=== PATIENT | female | born 1995 | race Caucasian/White ===

== ENCOUNTER → 2016-06-29 | Outpatient (CLI) | payer OTHER, BC | LOC: MW.CHFP 14:15 | PROVIDERS: ATTEND Physician Assistant | DX: J02.9 Acute pharyngitis, unspecified (principal) | CPT/HCPCS: 87081; 87880 ==

== ENCOUNTER 2017-03-15 17:48 | Emergency (ER) | payer BC, OTHER ==
--- NOTE | 2017-03-15 19:28 | EDM.PDOC ---
ED HPI GENERAL MEDICAL PROBLEM - General Chief Complaint: Abdominal Pain Stated Complaint: ABDOMINAL PAIN Time Seen by Provider: 03/15/17 19:22 - History of Present Illness INITIAL COMMENTS - FREE TEXT/NARRATIVE: HISTORY AND PHYSICAL: History of present illness: Patient 22-year-old female presents with a concern of vomiting and diarrhea right-sided abdominal pain since Wednesday has been no fever no chills she states her nausea vomiting and mostly with food she denies urinary symptoms vaginal discharge she has had a prior appendectomy. Review of systems: As per history of present illness and below otherwise all systems reviewed and negative. Past medical history: As per history of present illness and as reviewed below otherwise noncontributory. Surgical history: As per history of present illness and as reviewed below otherwise noncontributory. Social history: No reported history of drug or alcohol abuse. Family history: As per history of present illness and as reviewed below otherwise noncontributory. Physical exam: HEENT: Atraumatic, normocephalic, pupils reactive, negative for conjunctival pallor or scleral icterus, mucous membranes moist, throat clear, neck supple, nontender, trachea midline. Lungs: Clear to auscultation, breath sounds equal bilaterally, chest nontender. Heart: S1S2, regular, negative for clicks, rubs, or JVD. Abdomen: Soft, nondistended, nonlocalized right-sided tenderness no rebound no guarding. Negative for masses or hepatosplenomegaly. Negative for costovertebral tenderness. Pelvis: Stable nontender. Genitourinary: Deferred. Rectal: Deferred. Extremities: Atraumatic, negative for cords or calf pain. Neurovascular unremarkable. Neuro: Awake, alert, oriented. Cranial nerves II through XII unremarkable. Cerebellum unremarkable. Motor and sensory unremarkable throughout. Exam nonfocal. Diagnostics: EBC CMP UA hCG influenza screen Therapeutics: None Impression: #1 gastroenteritis Definitive disposition and diagnosis as appropriate pending reevaluation and review of above. right upper and lower quadrant abd Pain Score (Numeric/FACES): 8 - Related Data Allergies Allergy/AdvReac Type Severity Reaction Status Date / Time Penicillins Allergy Cannot Verified 03/15/17 18:24 Remember Home Meds: Home Meds Sertraline [Zoloft] 100 mg PO DAILY 03/28/15 [History] buPROPion [Wellbutrin SR] 150 mg PO ONETIME 10/23/15 [History] Past Medical History - Past Health History Medical/Surgical History: Denies Medical/Surgical History HEENT History: Reports: Other (See Below) Other HEENT History: wears glasses Cardiovascular History: Reports: Other (See Below) Other Cardiovascular History: states she has Mitral Valve prolapse, no murmur heard Respiratory History: Reports: None Gastrointestinal History: Reports: GERD Other Gastrointestinal History: rectal bleed Genitourinary History: Reports: None Other Genitourinary History: states frequent UTI's in last 2 years REHAB AID History: Reports: None Musculoskeletal History: Reports: None Neurological History: Reports: Migraines Other Neuro History: does not take any medications for migranes, "sleeps" to relieve pain Psychiatric History: Reports: Anxiety, Depression Endocrine/Metabolic History: Reports: None Hematologic History: Reports: None Immunologic History: Reports: None Oncologic (Cancer) History: Reports: None Dermatologic History: Reports: None - Infectious Disease History Infectious Disease History: Reports: Chicken Pox - Past Surgical History Head Surgeries/Procedures: Reports: None GI Surgical History: Reports: Appendectomy, Colonoscopy Female Surgical History: Reports: None Neurological Surgical History: Reports: None Musculoskeletal Surgical History: Reports: None Oncologic Surgical History: Reports: None Dermatological Surgical History: Reports: None Social & Family History - Family History Family Medical History: Noncontributory - Tobacco Use Smoking Status *Q: Current Every Day Smoker Years of Tobacco use: 5 Packs/Tins Daily: 0.5 Second Hand Smoke Exposure: Yes - Caffeine Use Caffeine Use: Reports: Soda - Alcohol Use Days Per Week of Alcohol Use: 2 Number of Drinks Per Day: 3 Total Drinks Per Week: 6 - Recreational Drug Use Recreational Drug Use: No Drug Use in Last 12 Months: No ED ROS GENERAL - Review of Systems Review Of Systems: ROS reveals no pertinent complaints other than HPI. ED EXAM, GENERAL - Physical Exam Exam: See Below (See dictation) Course - Vital Signs Last Recorded V/S: Last Vital Signs Temp 37.0 C 03/15/17 18:25 Pulse 93 03/15/17 18:25 Resp 18 03/15/17 18:25 BP 121/78 03/15/17 18:25 Pulse Ox 99 03/15/17 18:25 - Orders/Labs/Meds Orders: Active Orders 24 hr Category Date Time Status INFLUENZA A+B AG SCREEN [RM] Stat Lab 03/15/17 20:14 Received Labs: Laboratory Tests 03/15/17 03/15/17 03/15/17 Range/Units 19:35 19:35 19:35 WBC 8.46 (4.0-11.0) K/uL RBC 3.91 L (4.30-5.90) M/uL Hgb 13.1 (12.0-16.0) g/dL Hct 38.6 (36.0-46.0) % MCV 98.7 H (80.0-98.0) fL MCH 33.5 H (27.0-32.0) pg MCHC 33.9 (31.0-37.0) g/dL RDW Std Deviation 48.1 (28.0-62.0) fl RDW Coeff of Joan 14 (11.0-15.0) % Plt Count 264 (150-400) K/uL MPV 9.00 (7.40-12.00) fL Neut % (Auto) 63.7 (48.0-80.0) % Lymph % (Auto) 26.7 (16.0-40.0) % [place] % (Auto) 7.7 (0.0-15.0) % Eos % (Auto) 1.5 (0.0-7.0) % Baso % (Auto) 0.4 (0.0-1.5) % Neut # (Auto) 5.4 (1.4-5.7) K/uL Lymph # (Auto) 2.3 (0.6-2.4) K/uL [place] # (Auto) 0.7 (0.0-0.8) K/uL Eos # (Auto) 0.1 (0.0-0.7) K/uL Baso # (Auto) 0.0 (0.0-0.1) K/uL Nucleated RBC % 0.0 /100WBC Nucleated RBCs # 0 K/uL Sodium 141 (136-146) mmol/L Potassium 3.8 (3.5-5.1) mmol/L Chloride 107 (98-110) mmol/L Carbon Dioxide 23 (21-31) mmol/L BUN 7 (6.0-23.0) mg/dL Creatinine 0.8 (0.6-1.5) mg/dL Est Cr Clr Drug Dosing 87.62 mL/min Estimated GFR (MDRD) > 60.0 ml/min Glucose 88 (60-110) mg/dL Calcium 9.5 (8.8-10.8) mg/dL Total Bilirubin 0.4 (0.1-1.5) mg/dL AST 24 (5-40) IU/L ALT 16 (8-54) IU/L Alkaline Phosphatase 78 (40-150) Total Protein 8.1 H (6.0-8.0) g/dL Albumin 4.6 (3.5-5.0) g/dL Globulin 3.5 (2.0-3.5) g/dL Albumin/Globulin Ratio 1.3 (1.3-2.8) HCG, Qual NEGATIVE (NEG) Urine Color Urine Appearance Urine pH (5.0-8.0) Ur Specific [place] (1.001-1.035) Urine Protein (NEGATIVE) mg/dL Urine Glucose (UA) (NEGATIVE) mg/dL Urine Ketones (NEGATIVE) mg/dL Urine Occult Blood (NEGATIVE) Urine Nitrite (NEGATIVE) Urine Bilirubin (NEGATIVE) Urine Urobilinogen (<2.0) EU/dL Ur Leukocyte Esterase (NEGATIVE) Urine RBC (0-2/HPF) Urine WBC (0-5/HPF) Ur Epithelial Cells (NONE-FEW) Amorphous Sediment (NEGATIVE) Urine Bacteria (NEGATIVE) 03/15/17 Range/Units 20:00 WBC (4.0-11.0) K/uL RBC (4.30-5.90) M/uL Hgb (12.0-16.0) g/dL Hct (36.0-46.0) % MCV (80.0-98.0) fL MCH (27.0-32.0) pg MCHC (31.0-37.0) g/dL RDW Std Deviation (28.0-62.0) fl RDW Coeff of Joan (11.0-15.0) % Plt Count (150-400) K/uL MPV (7.40-12.00) fL Neut % (Auto) (48.0-80.0) % Lymph % (Auto) (16.0-40.0) % [place] % (Auto) (0.0-15.0) % Eos % (Auto) (0.0-7.0) % Baso % (Auto) (0.0-1.5) % Neut # (Auto) (1.4-5.7) K/uL Lymph # (Auto) (0.6-2.4) K/uL [place] # (Auto) (0.0-0.8) K/uL Eos # (Auto) (0.0-0.7) K/uL Baso # (Auto) (0.0-0.1) K/uL Nucleated RBC % /100WBC Nucleated RBCs # K/uL Sodium (136-146) mmol/L Potassium (3.5-5.1) mmol/L Chloride (98-110) mmol/L Carbon Dioxide (21-31) mmol/L BUN (6.0-23.0) mg/dL Creatinine (0.6-1.5) mg/dL Est Cr Clr Drug Dosing mL/min Estimated GFR (MDRD) ml/min Glucose (60-110) mg/dL Calcium (8.8-10.8) mg/dL Total Bilirubin (0.1-1.5) mg/dL AST (5-40) IU/L ALT (8-54) IU/L Alkaline Phosphatase (40-150) Total Protein (6.0-8.0) g/dL Albumin (3.5-5.0) g/dL Globulin (2.0-3.5) g/dL Albumin/Globulin Ratio (1.3-2.8) HCG, Qual (NEG) Urine Color YELLOW Urine Appearance CLEAR Urine pH 6.0 (5.0-8.0) Ur Specific [place] >= 1.030 (1.001-1.035) Urine Protein NEGATIVE (NEGATIVE) mg/dL Urine Glucose (UA) NEGATIVE (NEGATIVE) mg/dL Urine Ketones NEGATIVE (NEGATIVE) mg/dL Urine Occult Blood NEGATIVE (NEGATIVE) Urine Nitrite NEGATIVE (NEGATIVE) Urine Bilirubin NEGATIVE (NEGATIVE) Urine Urobilinogen 0.2 (<2.0) EU/dL Ur Leukocyte Esterase NEGATIVE (NEGATIVE) Urine RBC 0-1 (0-2/HPF) Urine WBC 1-2 (0-5/HPF) Ur Epithelial Cells MODERATE (NONE-FEW) Amorphous Sediment FEW (NEGATIVE) Urine Bacteria FEW (NEGATIVE) Departure - Departure Time of Disposition: 20:26 Disposition: Home, Self-Care 01 Condition: Good Clinical Impression: Gastroenteritis - Discharge Information Referrals: Mildred Thomas NP [Primary Care Provider] - Forms: ED Department Discharge Additional Instructions: The following information is given to patients seen in the emergency department who are being discharged to home. This information is to outline your options for follow-up care. We provide all patients seen in our emergency department with a follow-up referral. The need for follow-up, as well as the timing and circumstances, are variable depending upon the specifics of your emergency department visit. If you don't have a primary care physician on staff, we will provide you with a referral. We always advise you to contact your personal physician following an emergency department visit to inform them of the circumstance of the visit and for follow-up with them and/or the need for any referrals to a consulting specialist. The emergency department will also refer you to a specialist when appropriate. This referral assures that you have the opportunity for followup care with a specialist. All of these measure are taken in an effort to provide you with optimal care, which includes your followup. Under all circumstances we always encourage you to contact your private physician who remains a resource for coordinating your care. When calling for followup care, please make the office aware that this follow-up is from your recent emergency room visit. If for any reason you are refused follow-up, please contact the [facility] emergency department at and asked to speak to the emergency department charge nurse. Push fluids clear liquids 24 hours avoid dairy 72 hours follow-up private medical doctor 1-2 days return as needed as discussed - My Orders Last 24 Hours: My Active Orders 03/15/17 20:14 INFLUENZA A+B AG SCREEN [RM] Stat - Assessment/Plan Last 24 Hours: My Active Orders 03/15/17 20:14 INFLUENZA A+B AG SCREEN [RM] Stat
[2017-03-15 20:00] LABS: CHLORIDE,CL 107 mmol/L (98-110); SODIUM,NA 141 mmol/L (136-146)
[2017-03-15 20:50] VITALS: BP 115/69
== END 2017-03-15 20:45 | disposition home or self-care (01) ==
LOC: MW.ED 17:48
DX: K52.9 Noninfective gastroenteritis and colitis, unspecified (principal); F17.210 Nicotine dependence, cigarettes, uncomplicated; Z88.0 Allergy status to penicillin; Z79.899 Other long term (current) drug therapy
CPT/HCPCS: 80053; 81001; 84703; 85025; 87804; 99283; 99284

== ENCOUNTER 2017-03-20 21:03 | Emergency (ER) | payer OTHER ==
--- NOTE | 2017-03-20 21:21 | EDM.PDOC ---
ED HPI GENERAL MEDICAL PROBLEM - General Chief Complaint: Gastrointestinal Problem Stated Complaint: STOMACH PAIN Time Seen by Provider: 03/20/17 21:16 - History of Present Illness INITIAL COMMENTS - FREE TEXT/NARRATIVE: HISTORY AND PHYSICAL: History of present illness: Patient is a 22-year-old female presents to the ER for a second visit for abdominal pain she states there is been no fever chills urinary symptoms vaginal discharge or irregular bleeding Review of systems: As per history of present illness and below otherwise all systems reviewed and negative. Past medical history: As per history of present illness and as reviewed below otherwise noncontributory. Surgical history: As per history of present illness and as reviewed below otherwise noncontributory. Social history: No reported history of drug or alcohol abuse. Family history: As per history of present illness and as reviewed below otherwise noncontributory. Physical exam: HEENT: Atraumatic, normocephalic, pupils reactive, negative for conjunctival pallor or scleral icterus, mucous membranes moist, throat clear, neck supple, nontender, trachea midline. Lungs: Clear to auscultation, breath sounds equal bilaterally, chest nontender. Heart: S1S2, regular, negative for clicks, rubs, or JVD. Abdomen: Soft, nondistended, no localized tender. Negative for masses or hepatosplenomegaly. Negative for costovertebral tenderness. Pelvis: Stable nontender. Genitourinary: Deferred. Rectal: Deferred. Extremities: Atraumatic, negative for cords or calf pain. Neurovascular unremarkable. Neuro: Awake, alert, oriented. Cranial nerves II through XII unremarkable. Cerebellum unremarkable. Motor and sensory unremarkable throughout. Exam nonfocal. Diagnostics: CBC CMP UA lipase urine drug screen hCG Therapeutics: None Impression: #1 nonspecific abdominal pain Definitive disposition and diagnosis as appropriate pending reevaluation and review of above. Abdomen Pain Score (Numeric/FACES): 9 - Related Data Allergies Allergy/AdvReac Type Severity Reaction Status Date / Time Penicillins Allergy Cannot Verified 03/20/17 21:16 Remember Home Meds: Home Meds Sertraline [Zoloft] 100 mg PO DAILY 03/28/15 [History] buPROPion [Wellbutrin SR] 150 mg PO ONETIME 10/23/15 [History] Past Medical History - Past Health History Medical/Surgical History: Denies Medical/Surgical History HEENT History: Reports: Other (See Below) Other HEENT History: wears glasses Cardiovascular History: Reports: Other (See Below) Other Cardiovascular History: states she has Mitral Valve prolapse, no murmur heard Respiratory History: Reports: None Gastrointestinal History: Reports: GERD Other Gastrointestinal History: rectal bleed Genitourinary History: Reports: None Other Genitourinary History: states frequent UTI's in last 2 years 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: None Musculoskeletal History: Reports: None Neurological History: Reports: Migraines Other Neuro History: does not take any medications for migranes, "sleeps" to relieve pain Psychiatric History: Reports: Anxiety, Depression Endocrine/Metabolic History: Reports: None Hematologic History: Reports: None Immunologic History: Reports: None Oncologic (Cancer) History: Reports: None Dermatologic History: Reports: None - Infectious Disease History Infectious Disease History: Reports: Chicken Pox - Past Surgical History Head Surgeries/Procedures: Reports: None GI Surgical History: Reports: Appendectomy, Colonoscopy Female Surgical History: Reports: None Neurological Surgical History: Reports: None Musculoskeletal Surgical History: Reports: None Oncologic Surgical History: Reports: None Dermatological Surgical History: Reports: None Social & Family History - Family History Family Medical History: Noncontributory - Tobacco Use Smoking Status *Q: Current Every Day Smoker Years of Tobacco use: 5 Packs/Tins Daily: 0.5 Second Hand Smoke Exposure: Yes - Caffeine Use Caffeine Use: Reports: Soda - Alcohol Use Days Per Week of Alcohol Use: 2 Number of Drinks Per Day: 3 Total Drinks Per Week: 6 - Recreational Drug Use Recreational Drug Use: No Drug Use in Last 12 Months: No ED ROS GENERAL - Review of Systems Review Of Systems: ROS reveals no pertinent complaints other than HPI. ED EXAM, GENERAL - Physical Exam Exam: See Below (See dictation) Course - Vital Signs Last Recorded V/S: Last Vital Signs Temp 36.6 C 03/21/17 01:30 Pulse 68 03/21/17 01:30 Resp 18 03/21/17 01:30 BP 111/62 03/21/17 01:30 Pulse Ox 98 03/21/17 01:30 - Orders/Labs/Meds Orders: Active Orders 24 hr Category Date Time Status Abdomen Pelvis w Cont [CT] Stat Exams 03/20/17 21:22 Taken Pelvis Non OB Comp [US] Stat Exams 12/24/17 00:20 Taken Labs: Laboratory Tests 03/20/17 03/20/17 03/20/17 Range/Units 21:30 21:30 21:30 WBC 8.33 (4.0-11.0) K/uL RBC 4.22 L (4.30-5.90) M/uL Hgb 14.3 (12.0-16.0) g/dL Hct 41.4 (36.0-46.0) % MCV 98.1 H (80.0-98.0) fL MCH 33.9 H (27.0-32.0) pg MCHC 34.5 (31.0-37.0) g/dL RDW Std Deviation 47.5 (28.0-62.0) fl RDW Coeff of Joan 13 (11.0-15.0) % Plt Count 282 (150-400) K/uL MPV 9.00 (7.40-12.00) fL Neut % (Auto) 56.7 (48.0-80.0) % Lymph % (Auto) 31.1 (16.0-40.0) % [place] % (Auto) 10.1 (0.0-15.0) % Eos % (Auto) 1.6 (0.0-7.0) % Baso % (Auto) 0.5 (0.0-1.5) % Neut # (Auto) 4.7 (1.4-5.7) K/uL Lymph # (Auto) 2.6 H (0.6-2.4) K/uL [place] # (Auto) 0.8 (0.0-0.8) K/uL Eos # (Auto) 0.1 (0.0-0.7) K/uL Baso # (Auto) 0.0 (0.0-0.1) K/uL Nucleated RBC % 0.0 /100WBC Nucleated RBCs # 0 K/uL Sodium 139 (136-146) mmol/L Potassium 4.2 (3.5-5.1) mmol/L Chloride 107 (98-110) mmol/L Carbon Dioxide 20 L (21-31) mmol/L BUN 10 (6.0-23.0) mg/dL Creatinine 0.8 (0.6-1.5) mg/dL Est Cr Clr Drug Dosing TNP Estimated GFR (MDRD) > 60.0 ml/min Glucose 85 (60-110) mg/dL Calcium 10.0 (8.8-10.8) mg/dL Total Bilirubin 0.5 (0.1-1.5) mg/dL AST 26 (5-40) IU/L ALT 18 (8-54) IU/L Alkaline Phosphatase 73 (40-150) Total Protein 8.5 H (6.0-8.0) g/dL Albumin 4.8 (3.5-5.0) g/dL Globulin 3.7 H (2.0-3.5) g/dL Albumin/Globulin Ratio 1.3 (1.3-2.8) Lipase 18 (7-80) U/L HCG, Qual NEGATIVE (NEG) Urine Color Urine Appearance Urine pH (5.0-8.0) Ur Specific [place] (1.001-1.035) Urine Protein (NEGATIVE) mg/dL Urine Glucose (UA) (NEGATIVE) mg/dL Urine Ketones (NEGATIVE) mg/dL Urine Occult Blood (NEGATIVE) Urine Nitrite (NEGATIVE) Urine Bilirubin (NEGATIVE) Urine Urobilinogen (<2.0) EU/dL Ur Leukocyte Esterase (NEGATIVE) Urine RBC (0-2/HPF) Urine WBC (0-5/HPF) Ur Epithelial Cells (NONE-FEW) Amorphous Sediment (NEGATIVE) Urine Bacteria (NEGATIVE) Urine Mucus (NONE-MOD) Urine Opiates Screen (NEGATIVE) Ur Oxycodone Screen (NEGATIVE) Urine Methadone Screen (NEGATIVE) Ur Barbiturates Screen (NEGATIVE) Ur Phencyclidine Scrn (NEGATIVE) Ur Amphetamine Screen (NEGATIVE) U Methamphetamines Scrn (NEGATIVE) U Benzodiazepines Scrn (NEGATIVE) U Cocaine Metab Screen (NEGATIVE) U Marijuana (THC) Screen (NEGATIVE) 03/20/17 03/20/17 Range/Units 21:45 21:45 WBC (4.0-11.0) K/uL RBC (4.30-5.90) M/uL Hgb (12.0-16.0) g/dL Hct (36.0-46.0) % MCV (80.0-98.0) fL MCH (27.0-32.0) pg MCHC (31.0-37.0) g/dL RDW Std Deviation (28.0-62.0) fl RDW Coeff of Joan (11.0-15.0) % Plt Count (150-400) K/uL MPV (7.40-12.00) fL Neut % (Auto) (48.0-80.0) % Lymph % (Auto) (16.0-40.0) % [place] % (Auto) (0.0-15.0) % Eos % (Auto) (0.0-7.0) % Baso % (Auto) (0.0-1.5) % Neut # (Auto) (1.4-5.7) K/uL Lymph # (Auto) (0.6-2.4) K/uL [place] # (Auto) (0.0-0.8) K/uL Eos # (Auto) (0.0-0.7) K/uL Baso # (Auto) (0.0-0.1) K/uL Nucleated RBC % /100WBC Nucleated RBCs # K/uL Sodium (136-146) mmol/L Potassium (3.5-5.1) mmol/L Chloride (98-110) mmol/L Carbon Dioxide (21-31) mmol/L BUN (6.0-23.0) mg/dL Creatinine (0.6-1.5) mg/dL Est Cr Clr Drug Dosing Estimated GFR (MDRD) ml/min Glucose (60-110) mg/dL Calcium (8.8-10.8) mg/dL Total Bilirubin (0.1-1.5) mg/dL AST (5-40) IU/L ALT (8-54) IU/L Alkaline Phosphatase (40-150) Total Protein (6.0-8.0) g/dL Albumin (3.5-5.0) g/dL Globulin (2.0-3.5) g/dL Albumin/Globulin Ratio (1.3-2.8) Lipase (7-80) U/L HCG, Qual (NEG) Urine Color YELLOW Urine Appearance CLEAR Urine pH 6.0 (5.0-8.0) Ur Specific [place] 1.025 (1.001-1.035) Urine Protein NEGATIVE (NEGATIVE) mg/dL Urine Glucose (UA) NEGATIVE (NEGATIVE) mg/dL Urine Ketones NEGATIVE (NEGATIVE) mg/dL Urine Occult Blood NEGATIVE (NEGATIVE) Urine Nitrite NEGATIVE (NEGATIVE) Urine Bilirubin NEGATIVE (NEGATIVE) Urine Urobilinogen 0.2 (<2.0) EU/dL Ur Leukocyte Esterase NEGATIVE (NEGATIVE) Urine RBC 0-2 (0-2/HPF) Urine WBC 1-3 (0-5/HPF) Ur Epithelial Cells FEW (NONE-FEW) Amorphous Sediment FEW (NEGATIVE) Urine Bacteria FEW (NEGATIVE) Urine Mucus FEW (NONE-MOD) Urine Opiates Screen NEGATIVE (NEGATIVE) Ur Oxycodone Screen NEGATIVE (NEGATIVE) Urine Methadone Screen NEGATIVE (NEGATIVE) Ur Barbiturates Screen NEGATIVE (NEGATIVE) Ur Phencyclidine Scrn NEGATIVE (NEGATIVE) Ur Amphetamine Screen NEGATIVE (NEGATIVE) U Methamphetamines Scrn NEGATIVE (NEGATIVE) U Benzodiazepines Scrn NEGATIVE (NEGATIVE) U Cocaine Metab Screen NEGATIVE (NEGATIVE) U Marijuana (THC) Screen POSITIVE (NEGATIVE) Meds: Medications Discontinued Medications Generic Name Dose Route Start Last Admin Trade Name Freq PRN Reason Stop Dose Admin Sodium Chloride 1,000 mls @ 999 mls/hr 03/20/17 21:22 03/20/17 21:45 Normal Saline IV 03/20/17 22:22 999 mls/hr STAT ONE Administration Iopamidol 63 ml 03/20/17 22:33 03/20/17 22:33 Isovue Multipack-370 (76%) IVPUSH 03/20/17 22:34 63 ml ONETIME STA Administration Departure - Departure Time of Disposition: 02:00 Disposition: Home, Self-Care 01 Clinical Impression: Cyst of ovary - Discharge Information Instructions: Ovarian Cyst, [id number] Referrals: PCP,None [Primary Care Provider] - Forms: ED Department Discharge Care Plan Goals: Motrin & Tylenol for pain - My Orders Last 24 Hours: My Active Orders 03/20/17 21:22 Abdomen Pelvis w Cont [CT] Stat 03/21/17 00:20 Pelvis Non OB Comp [US] Stat - Assessment/Plan Last 24 Hours: My Active Orders 03/20/17 21:22 Abdomen Pelvis w Cont [CT] Stat 03/21/17 00:20 Pelvis Non OB Comp [US] Stat
[2017-03-20] MEDS ORDERED: Sodium Chloride 0.9% 1,000 ML IV ONE (21:22)
[2017-03-20 21:58] LABS: CHLORIDE,CL 107 mmol/L (98-110); SODIUM,NA 139 mmol/L (136-146)
[2017-03-20] MEDS ORDERED: Iopamidol 755 MG/ML 500 ML Multipack Bottle IVPUSH STA (22:33)
[2017-03-21 01:42] VITALS: BP 111/62
--- NOTE | 2017-03-23 14:44 | CT ---
EXAM DATE: 03/20/17 PATIENT'S AGE: 22 Patient: BECK CASTRO Facility: [place], [place] Site . Site : 1996 Study: CT Abdomen/Pelvis w cont [id number] 10:35:14 PM Ordering Physician: Charlie Farley Final Report: INDICATION: Abdominal pain, bloody stools TECHNIQUE: CT abdomen and pelvis acquired with IV contrast. 63 cc Isovue 370 COMPARISON: 04/21/2015 FINDINGS: Lower chest: Unremarkable. Liver: Unremarkable. Spleen: Unremarkable. Pancreas: Unremarkable. Gallbladder and bile ducts: Unremarkable. Kidneys: Unremarkable. Adrenal glands: Unremarkable. GI tract: Unremarkable. Appendix is visualized. Vascular structures: Unremarkable. Lymph nodes: Unremarkable. Miscellaneous: Unremarkable. No free air or significant free fluid. Pelvic Organs: Small amount of high density fluid in the right adnexa with a possible involuting a ruptured cyst. Correlate with ruptured hemorrhagic cyst clinically. Pelvic ultrasound may be helpful to further characterize. Bones: Unremarkable for age. IMPRESSION: Small amount of high density fluid in right adnexa with possible involuting a ruptured cyst. Correlate with ruptured hemorrhagic cyst clinically. Pelvic ultrasound would be helpful to better characterize. Correlate with right lower quadrant/pelvic pain. The appendix is not visualized. Dictated by Jose Hamilton MD @ 03/20/2017 11:28:06 PM Dictated by: Jose Hamilton MD @ 03/20/2017 23:28:13 ----- ADDENDUM ----- The body of the report should state: The appendix is not visualized. : Dictated by Jose Hamilton MD @ Mar 20 2017 11:59PM (Electronic Signature) Report Signed by Proxy. [facility]
--- NOTE | 2017-03-23 14:47 | US ---
EXAM DATE: 03/20/17 PATIENT'S AGE: 22 Patient: BECK CASTRO Facility: [place], [place] Site . Site : 1996 Study: US Pelvis -03/21/2017 12:51:12 AM Ordering Physician: Charlie Farley Final Report: INDICATION: Abdominal pain for 1 week TECHNIQUE: Ultrasound pelvis transvaginal for better assessment or to better visualize the endometrium. Real-time sonographic images with spectral and color Doppler imaging of the ovaries were obtained. COMPARISON: CT abdomen pelvis March 20, 2017 FINDINGS: Uterus: 8.5 x 4.3 x 6.0 cm. Normal echotexture of the myometrium. No masses. Endometrium: Transvaginal imaging was performed to better evaluate the endometrium. 15 mm in thickness. No sign of endometrial mass or fluid. Right ovary: 4.2 x 2.0 x 3.5 cm. Complex lesion in the right ovary measuring 2.8 x 1.5 x 2.5 cm.. Normal arterial and venous blood flow. Left ovary: 2.9 x 1.8 x 1.5 cm. No ovarian or adnexal masses. Normal arterial and venous blood flow. There is a small amount of fluid in the cul-de-sac and right adnexa. IMPRESSION: No ovarian torsion. Complex lesion on the right ovary may represent a hemorrhagic cyst. Dictated by Tonya Martinez MD @ Mar 21 2017 1:14AM (Electronic Signature) Report Signed by Proxy. [facility]EL
== END 2017-03-21 01:30 | disposition home or self-care (01) ==
LOC: MW.ED 21:03
DX: N83.201 Unspecified ovarian cyst, right side (principal); F17.210 Nicotine dependence, cigarettes, uncomplicated; Z88.0 Allergy status to penicillin; Z79.899 Other long term (current) drug therapy
CPT/HCPCS: 74177; 76856; 80053; 80305; 81001; 83690; 84703; 85025; 96360; 99284; J7040; Q9967; 99283

== ENCOUNTER 2017-04-02 14:03 | Emergency (ER) | payer OTHER ==
[2017-04-02] MEDS ORDERED: Ketorolac 30 MG/ML SDV IVPUSH ONE (14:40)
[2017-04-02] MEDS ORDERED: Acetaminophen/HYDROcodone 325-5 MG Tab PO ONE (14:41)
[2017-04-02] MEDS ORDERED: Ketorolac 60 MG/2 ML SDV IM ONE (14:42)
--- NOTE | 2017-04-02 14:52 | EDM.PDOC ---
ED HPI GENERAL MEDICAL PROBLEM - General Chief Complaint: Flank Pain Stated Complaint: R LOWER ABD PAIN Time Seen by Provider: 04/02/17 14:28 - History of Present Illness INITIAL COMMENTS - FREE TEXT/NARRATIVE: HISTORY AND PHYSICAL: History of present illness: Patient is a 22-year-old female who presents with persistent right lower quadrant pain believed to be from an ovarian cyst which was diagnosed several weeks ago. The patient says this is her third time in the ER and she is getting very frustrated as the pain is persistent and "no one is doing anything about it ". She was seen here on March 20 and had labs a CT scan of the abdomen and pelvis as well as a pelvic ultrasound which revealed a right hemorrhagic ovarian cyst which was 2.8 x 1.5 x 2.5 cm. She was given medication and she followed up with her provider at [facility] who gave her antibiotics and tramadol and she says that the pain meds did not work very well and she has run out of those. She says she is trying to get back in to see her provider at [facility], Mildred Thomas, as well as trying to get into one of our clinic providers and she says that she has not been able to because everyone is " booked up". The patient says that because of the pain she is having difficulty working and she states she has not had sexual intercourse since she was last seen here in the department and she has recently started her period and she is currently on it.. She says her provider also started her on control pills to prevent further cyst formation. The patient is been eating and drinking normally without nausea vomiting or diarrhea and no urinary complaints. She has no flank pain no upper abdominal pains and no left-sided pain. Patient states that her period flow is typical for her and she has no other vaginal complaints Review of systems: As per history of present illness and below otherwise all systems reviewed and negative. Past medical history: As per history of present illness and as reviewed below otherwise noncontributory. Surgical history: As per history of present illness and as reviewed below otherwise noncontributory. Social history: No reported history of drug or alcohol abuse. Family history: As per history of present illness and as reviewed below otherwise noncontributory. Physical exam: Gen.: Well-developed well-nourished female who is nontoxic and thin. Vital signs reviewed by me. It is noted that she moves very easily in the ED without any distress HEENT: Atraumatic, normocephalic, negative for conjunctival pallor or scleral icterus, mucous membranes moist, throat clear, neck supple, nontender, trachea midline. Lungs: Clear to auscultation, breath sounds equal bilaterally, chest nontender. Heart: S1S2, regular rate and rhythm no overt murmurs Abdomen: Soft, nondistended, bowel sounds are slightly hypoactive and there is mild tenderness on very deep palpation in the right lower quadrant without rebound or guarding. The abdomen is without any discomfort on palpation. Negative for masses or hepatosplenomegaly. Negative for costovertebral tenderness. Pelvis: Stable nontender. Genitourinary: Deferred. Rectal: Deferred. Extremities: Atraumatic, negative for cords or calf pain. Neurovascular unremarkable. Neuro: Awake, alert, oriented. Cranial nerves II through XII unremarkable. Cerebellum unremarkable. Motor and sensory unremarkable throughout. Exam nonfocal. Diagnostics: CBC UA UCG pelvic ultrasound Therapeutics: Toradol [place] I told the patient that I understand her frustrations and help facilitate follow -up and that we would do a workup here but pending a surgical emergency definitive treatment of the cyst would not be an emergency department capability. I told her that I would help her with her discomfort and further evaluate her here and try to connect her with either her provider in [facility] or one of our providers. 1445: I discussed this case with her provider at [facility], Mildred Thomas and she states that she will be happy to see this patient on Wednesday and we will help call and get a Follow-up on that date. She is aware of my workup and care plan for home. Patient is aware of some delays with getting ultrasound reports and is aware of all testing results. She is also aware of my conversation with her provider at the clinic. She says she is feeling significantly better with her pain and I will discharge her home on diclofenac and a few [place] to tide her over until her appointment with her provider on Wednesday morning at 7:30 AM. She is happy about this care plan and appreciative of the calls and care Impression: Right lower abdominal pain/pelvic pain, history of right ovarian cyst resolved Definitive disposition and diagnosis as appropriate pending reevaluation and review of above. right lower abdominal Pain Score (Numeric/FACES): 10 - Related Data Allergies Allergy/AdvReac Type Severity Reaction Status Date / Time Penicillins Allergy Cannot Verified 04/02/17 14:17 Remember Home Meds: Home Meds Sertraline [Zoloft] 100 mg PO DAILY 03/28/15 [History] buPROPion [Wellbutrin SR] 150 mg PO ONETIME 10/23/15 [History] Past Medical History - Past Health History Medical/Surgical History: Denies Medical/Surgical History HEENT History: Reports: Other (See Below) Other HEENT History: wears glasses Cardiovascular History: Reports: Other (See Below) Other Cardiovascular History: states she has Mitral Valve prolapse, no murmur heard Respiratory History: Reports: None Gastrointestinal History: Reports: GERD Other Gastrointestinal History: rectal bleed Genitourinary History: Reports: None Other Genitourinary History: states frequent UTI's in last 2 years 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 Musculoskeletal History: Reports: None Neurological History: Reports: Migraines Other Neuro History: does not take any medications for migranes, "sleeps" to relieve pain Psychiatric History: Reports: Anxiety, Depression Endocrine/Metabolic History: Reports: None Hematologic History: Reports: None Immunologic History: Reports: None Oncologic (Cancer) History: Reports: None Dermatologic History: Reports: None - Infectious Disease History Infectious Disease History: Reports: Chicken Pox - Past Surgical History Head Surgeries/Procedures: Reports: None GI Surgical History: Reports: Appendectomy, Colonoscopy Female Surgical History: Reports: None Neurological Surgical History: Reports: None Musculoskeletal Surgical History: Reports: None Oncologic Surgical History: Reports: None Dermatological Surgical History: Reports: None Social & Family History - Family History Family Medical History: Noncontributory - Tobacco Use Smoking Status *Q: Current Every Day Smoker Years of Tobacco use: 5 Packs/Tins Daily: 0.5 Second Hand Smoke Exposure: Yes - Caffeine Use Caffeine Use: Reports: Soda - Alcohol Use Days Per Week of Alcohol Use: 2 Number of Drinks Per Day: 3 Total Drinks Per Week: 6 - Recreational Drug Use Recreational Drug Use: No Drug Use in Last 12 Months: No ED ROS GENERAL - Review of Systems Review Of Systems: ROS reveals no pertinent complaints other than HPI. ED EXAM, GENERAL - Physical Exam Exam: See Below (See dictation) Course - Vital Signs Last Recorded V/S: Last Vital Signs Temp 36.8 C 04/02/17 14:19 Pulse 93 04/02/17 14:19 Resp 18 04/02/17 14:19 BP 137/82 04/02/17 14:19 Pulse Ox 98 04/02/17 14:19 - Orders/Labs/Meds Labs: Laboratory Tests 04/02/17 04/02/17 04/02/17 Range/Units 14:47 14:47 14:51 WBC 8.02 (4.0-11.0) K/uL RBC 3.73 L (4.30-5.90) M/uL Hgb 12.5 (12.0-16.0) g/dL Hct 36.7 (36.0-46.0) % MCV 98.4 H (80.0-98.0) fL MCH 33.5 H (27.0-32.0) pg MCHC 34.1 (31.0-37.0) g/dL RDW Std Deviation 48.3 (28.0-62.0) fl RDW Coeff of Joan 14 (11.0-15.0) % Plt Count 258 (150-400) K/uL MPV 8.70 (7.40-12.00) fL Neut % (Auto) 65.5 (48.0-80.0) % Lymph % (Auto) 24.9 (16.0-40.0) % [place] % (Auto) 7.9 (0.0-15.0) % Eos % (Auto) 1.5 (0.0-7.0) % Baso % (Auto) 0.2 (0.0-1.5) % Neut # (Auto) 5.3 (1.4-5.7) K/uL Lymph # (Auto) 2.0 (0.6-2.4) K/uL [place] # (Auto) 0.6 (0.0-0.8) K/uL Eos # (Auto) 0.1 (0.0-0.7) K/uL Baso # (Auto) 0.0 (0.0-0.1) K/uL Nucleated RBC % 0.0 /100WBC Nucleated RBCs # 0 K/uL Urine Color YELLOW Urine Appearance CLEAR Urine pH 7.0 (5.0-8.0) Ur Specific [place] 1.020 (1.001-1.035) Urine Protein NEGATIVE (NEGATIVE) mg/dL Urine Glucose (UA) NEGATIVE (NEGATIVE) mg/dL Urine Ketones NEGATIVE (NEGATIVE) mg/dL Urine Occult Blood NEGATIVE (NEGATIVE) Urine Nitrite NEGATIVE (NEGATIVE) Urine Bilirubin NEGATIVE (NEGATIVE) Urine Urobilinogen 0.2 (<2.0) EU/dL Ur Leukocyte Esterase NEGATIVE (NEGATIVE) Urine RBC 0-1 (0-2/HPF) Urine WBC 0-2 (0-5/HPF) Ur Epithelial Cells FEW (NONE-FEW) Urine Bacteria FEW (NEGATIVE) Urine HCG, Qual NEGATIVE (NEGATIVE) Meds: Medications Discontinued Medications Generic Name Dose Route Start Last Admin Trade Name Freq PRN Reason Stop Dose Admin Hydrocodone Bitart/Acetaminophen 1 tab 04/02/17 14:41 04/02/17 15:20 [place] 325-5 Mg PO 04/02/17 14:42 1 tab ONETIME ONE Administration Ketorolac Tromethamine 30 mg 04/02/17 14:40 04/02/17 15:21 Toradol IVPUSH 04/02/17 14:41 Not Given ONETIME ONE Ketorolac Tromethamine 60 mg 04/02/17 14:42 04/02/17 15:20 Toradol IM 04/02/17 14:43 60 mg ONETIME ONE Administration Departure - Departure Time of Disposition: 16:33 Disposition: Home, Self-Care 01 Condition: Good Clinical Impression: Pelvic pain - Discharge Information Referrals: [facility] [Outside] Mildred Thomas NP [Primary Care Provider] - 04/06/17 7:30 am (Please arrive 15 minutes early for appointment. Bring with photo ID and insurance cards. ) Forms: ED Department Discharge Additional Instructions: The following information is given to patients seen in the emergency department who are being discharged to home. This information is to outline your options for follow-up care. We provide all patients seen in our emergency department with a follow-up referral. The need for follow-up, as well as the timing and circumstances, are variable depending upon the specifics of your emergency department visit. If you don't have a primary care physician on staff, we will provide you with a referral. We always advise you to contact your personal physician following an emergency department visit to inform them of the circumstance of the visit and for follow-up with them and/or the need for any referrals to a consulting specialist. The emergency department will also refer you to a specialist when appropriate. This referral assures that you have the opportunity for followup care with a specialist. All of these measure are taken in an effort to provide you with optimal care, which includes your followup. Under all circumstances we always encourage you to contact your private physician who remains a resource for coordinating your care. When calling for followup care, please make the office aware that this follow-up is from your recent emergency room visit. If for any reason you are refused follow-up, please contact the [facility] emergency department at and ask to speak to the emergency department charge nurse. [address] [place] [address] Please keep your appointment on this Wednesday at 7:30 AM with Mildred Thomas. His medications as needed and prescribed and return to ER as needed and as discussed
--- NOTE | 2017-04-02 16:20 | US ---
EXAMINATION: Transabdominal pelvic ultrasound HISTORY: Cyst COMPARISON: 03/21/2017 TECHNIQUE: Grayscale, color Doppler, spectral Doppler images obtained transvaginally. FINDINGS: The uterus is normal in size, contour, and echogenicity without a focal uterine mass. The e ndometrial stripe thickness measures 6 mm. Both the left and right ovaries are normal in size, contour, and echogenicity demonstrating normal co riley and spectral Doppler flow. Trace free fluid. No ovarian cysts are an adnexal masses. IMPRESSION: 1. Grossly unremarkable transvaginal pelvic ultrasound.
[2017-04-02 19:51] VITALS: BP 123/82
== END 2017-04-02 16:48 | disposition home or self-care (01) ==
LOC: MW.ED 14:03
DX: R10.2 Pelvic and perineal pain (principal); R10.31 Right lower quadrant pain; F32.9 Major depressive disorder, single episode, unspecified; F17.210 Nicotine dependence, cigarettes, uncomplicated; Z79.899 Other long term (current) drug therapy; Z88.0 Allergy status to penicillin
CPT/HCPCS: 36415; 76856; 81001; 81025; 85025; 96372; 99284; A9270; J1885

== ENCOUNTER 2018-09-18 16:55 | Inpatient (IN) | payer BC, OTHER ==
[2018-09-18] MEDS ORDERED: Sodium Chloride 0.9% 10 ML Syringe FLUSH PRN (17:13)
[2018-09-18] MEDS ORDERED: Ondansetron 4 MG/2 ML SDV IV PRN (17:13)
[2018-09-18] MEDS ORDERED: Lidocaine 1% 50 ML MDV INJECT PRN (17:13)
[2018-09-18] MEDS ORDERED: Sodium Chloride 0.9% 10 ML SDV IV PRN (17:13)
[2018-09-18] MEDS ORDERED: Carboprost Tromethamine 250 MCG/1 ML Amp IM PRN (17:13)
[2018-09-18] MEDS ORDERED: Sodium Chloride 0.9% 2.5 ML Syringe FLUSH PRN (17:13)
[2018-09-18] MEDS ORDERED: Water For Irrigation,Sterile 1,000 ML Container IRR PRN (17:13)
[2018-09-18] MEDS ORDERED: Misoprostol 200 MCG Tab PO PRN (17:13)
[2018-09-18] MEDS ORDERED: Methylergonovine 0.2 MG/1 ML Amp IM PRN (17:13)
[2018-09-18] MEDS ORDERED: Butorphanol 1 MG/ML SDV IVPUSH PRN (17:13)
[2018-09-18] MEDS ORDERED: Tranexamic Acid 1,000 MG in Sodium Chloride 0.9% 100 ML IV PRN (17:13)
[2018-09-18] MEDS ORDERED: Lactated Ringers 1,000 ML IV SCH (17:15)
[2018-09-18] MEDS ORDERED: Oxytocin/0.9 % Sodium Chloride 30 UNIT/500 ML BAG IV SCH ×2 (17:15→17:30)
[2018-09-18] MEDS ORDERED: Misoprostol 25 MCG (1/4 of 100 MCG) Tab VAG PRN (17:17)
[2018-09-18] MEDS ORDERED: Terbutaline 1 MG/ML SDV SUBCUT PRN (17:17)
[2018-09-18] MEDS: Clindamycin Phosphate in D5W 900 MG in Premix Bag 1 BAG IV SCH ×2 (17:47)
--- NOTE | 2018-09-19 01:42 | PCM.PREANE ---
Preanesthetic Assessment - Anesthesia/Transfusion/Family Hx Anesthesia History: No Prior Anesthesia Family History of Anesthesia Reaction: No Transfusion History: No Prior Transfusion(s) Type of Transfusion Reactions: Reports: Unknown - Review of Systems General: No Symptoms Pulmonary: No Symptoms Cardiovascular: No Symptoms Gastrointestinal: No Symptoms Neurological: No Symptoms Other: Reports: None - Physical Assessment Height: 5 ft 2.5 in Weight: 81.193 kg ASA Class: 2 Mental Status: Alert & Oriented x3 Airway Class: Mallampati = 2 Dentition: Reports: Normal Dentition Thyro-Mental Finger Breadths: 3 Mouth Opening Finger Breadths: 3 ROM/Head Extension: Full Lungs: Clear to Auscultation, Normal Respiratory Effort Cardiovascular: Regular Rate, Regular Rhythm - Lab Values: Laboratory Last Values WBC 9.00 K/uL (4.0-11.0) 09/18/18 17:27 RBC 3.67 M/uL (4.30-5.90) L 09/18/18 17:27 Hgb 12.3 g/dL (12.0-16.0) 09/18/18 17:27 Hct 37.5 % (36.0-46.0) 09/18/18 17:27 MCV 102.2 fL (80.0-98.0) H 09/18/18 17:27 MCH 33.5 pg (27.0-32.0) H 09/18/18 17:27 MCHC 32.8 g/dL (31.0-37.0) 09/18/18 17:27 RDW Std Deviation 54.8 fl (28.0-62.0) 09/18/18 17:27 RDW Coeff of Joan 15 % (11.0-15.0) 09/18/18 17:27 Plt Count 236 K/uL (150-400) 09/18/18 17:27 MPV 8.90 fL (7.40-12.00) 09/18/18 17:27 Nucleated RBC % 0.0 /100WBC 09/18/18 17:27 Nucleated RBCs # 0 K/uL 09/18/18 17:27 POC Glucose 76 mg/dL (60-110) 09/18/18 22:25 Blood Type O POSITIVE 09/18/18 17:27 Antibody Screen NEGATIVE 09/18/18 17:27 - Allergies Allergies/Adverse Reactions: Allergies Allergy/AdvReac Type Severity Reaction Status Date / Time Penicillins Allergy Cannot Verified 08/12/18 15:57 Remember - Acknowledgements Anesthesia Type Planned: Epidural Pt an Appropriate Candidate for the Planned Anesthesia: Yes Alternatives and Risks of Anesthesia Discussed w Pt/Guardian: Yes Pt/Guardian Understands and Agrees with Anesthesia Plan: Yes PreAnesthesia Questionnaire - Past Health History Medical/Surgical History: Denies Medical/Surgical History HEENT History: Reports: Other (See Below) Other HEENT History: wears glasses Cardiovascular History: Reports: Other (See Below) Other Cardiovascular History: states she has Mitral Valve prolapse, no murmur heard Respiratory History: Reports: None Gastrointestinal History: Reports: GERD Other Gastrointestinal History: rectal bleed Genitourinary History: Reports: None Other Genitourinary History: states frequent UTI's in last 2 years 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 Para: 0 LMP (Approximate): Musculoskeletal History: Reports: None Neurological History: Reports: Migraines Other Neuro History: does not take any medications for migranes, "sleeps" to relieve pain Psychiatric History: Reports: Anxiety, Depression Endocrine/Metabolic History: Reports: Diabetes, Gestational, Obesity/BMI 30+ Hematologic History: Reports: None Immunologic History: Reports: None Oncologic (Cancer) History: Reports: None Dermatologic History: Reports: None - Infectious Disease History Infectious Disease History: Reports: Chicken Pox - Past Surgical History Head Surgeries/Procedures: Reports: None HEENT Surgical History: Reports: None Cardiovascular Surgical History: Reports: None Respiratory Surgical History: Reports: None GI Surgical History: Reports: Appendectomy, Colonoscopy Female Surgical History: Reports: None Endocrine Surgical History: Reports: None Neurological Surgical History: Reports: None Musculoskeletal Surgical History: Reports: None Oncologic Surgical History: Reports: None Dermatological Surgical History: Reports: None - SUBSTANCE USE Smoking Status *Q: Former Smoker Tobacco Use Within Last Twelve Months: Cigarettes Second Hand Smoke Exposure: No Recreational Drug Use History: Yes Recreational Drug Type: Reports: Marijuana/Hashish - HOME MEDS Home Medications: Home Meds buPROPion [Wellbutrin SR] 150 mg PO DAILY 10/23/15 [History] Pnv No.122/Iron/Folic Acid [ Multi Tablet] 1 tab PO DAILY 08/12/18 [ History] - CURRENT (IN HOUSE) MEDS Current Meds: Current Medications Butorphanol Tartrate (Stadol) 1 mg IVPUSH Q1H PRN PRN Reason: Pain Carboprost Tromethamine (Hemabate Ds) 250 mcg IM ASDIRECTED PRN PRN Reason: Post Hemorrhage Clindamycin Phosphate 900 mg/ (Premix) 50 mls @ 100 mls/hr IV Q8H LEENA Last Admin: 09/18/18 17:47 Dose: 100 mls/hr Lactated Ringer's (Ringers, Lactated) 1,000 mls @ 150 mls/hr IV ASDIRECTED LEENA Oxytocin/Sodium Chloride (Oxytocin 30 Unit/500 Ml-Ns) 30 unit in 500 mls @ 999 mls/hr IV TITRATE LEENA Tranexamic Acid 1,000 mg/ (Sodium Chloride) 110 mls @ 660 mls/hr IV ONETIME PRN PRN Reason: Bleeding Oxytocin/Sodium Chloride (Oxytocin 30 Unit/500 Ml-Ns) 30 unit in 500 mls @ 2 mls/hr IV TITRATE [facility]; Protocol Lidocaine HCl (Xylocaine 1%) 50 ml INJECT ONETIME PRN PRN Reason: Laceration repair Methylergonovine Maleate (Methergine) 0.2 mg IM ASDIRECTED PRN PRN Reason: Post Hemorrhage Misoprostol (Cytotec) 200 mcg PO ONETIME PRN PRN Reason: Post Hemorrhage Misoprostol (Cytotec) 25 mcg VAG Q4H PRN PRN Reason: Cervical Ripening Last Admin: 09/18/18 18:24 Dose: 25 mcg Ondansetron HCl (Zofran) 4 mg IV Q6H PRN PRN Reason: Nausea/Vomiting Sodium Chloride (Saline Flush) 10 ml FLUSH ASDIRECTED PRN PRN Reason: Keep Vein Open Sodium Chloride (Saline Flush) 2.5 ml FLUSH ASDIRECTED PRN PRN Reason: Keep Vein Open Sodium Chloride (Normal Saline) 10 ml IV ASDIRECTED PRN PRN Reason: IV Use Sterile Water (Sterile Water For Irrigation) 1,000 ml IRR ASDIRECTED PRN PRN Reason: delivery Terbutaline Sulfate (Brethine) 0.25 mg SUBCUT ASDIRECTED PRN PRN Reason: Tacysystole
[2018-09-19] MEDS: Clindamycin Phosphate in D5W 900 MG in Premix Bag 1 BAG IV SCH ×8 (02:23→18:06)
[2018-09-19] MEDS ORDERED: Acetaminophen 500 MG Tab PO PRN (19:07)
[2018-09-19] MEDS ORDERED: Aluminum Hydroxide/Magnesium Hydroxide/Simethicone Susp 30 ML Cup PO PRN (19:07)
[2018-09-19] MEDS ORDERED: Docusate Sodium 100 MG Cap PO PRN (19:07)
[2018-09-19] MEDS ORDERED: Benzocaine/Menthol 20%-0.5% Spray 78 GM Cannister TOP PRN (19:07)
[2018-09-19] MEDS ORDERED: Ibuprofen 400 MG Tab PO PRN (19:07)
[2018-09-19] MEDS ORDERED: Bisacodyl 10 MG Supp RECTAL PRN (19:07)
[2018-09-19] MEDS ORDERED: Lanolin 100% Cream 7 GM Tube TOP PRN (19:07)
--- NOTE | 2018-09-19 19:15 | PCM.OPNOTE ---
- General Post-Op/Procedure Note Date of Surgery/Procedure: 09/19/18 Operative Procedure(s): /2nd MLL repaired Findings: Viable male APGARs 8, 9 weight pending. Spontaneous delivery intact placenta with 3V cord Pre Op Diagnosis: 39/2 week IUP. IOL for GDM. GBBS + Post-Op Diagnosis: Same Anesthesia Technique: Epidural Primary Surgeon: Nazanin Rosario EBL in mLs: 300 Complications: none known Condition: Good Free Text/Narrative:: Dictation [id number]
[2018-09-19] MEDS ORDERED: Measles, Mumps & Rubella Vaccine 0.5 ML SDV SUBCUT ONE (19:21)
--- NOTE | 2018-09-19 20:16 | OR ---
SURGEON: Nazanin Rosario M.D. DATE OF PROCEDURE: 09/19/2018 PREOPERATIVE DIAGNOSES: 1. 39-2/7 weeks' intrauterine . 2. Gestational diabetes, diet controlled. 3. Group B beta strep positive. POSTOPERATIVE DIAGNOSES: 1. 39-2/7 weeks' intrauterine . 2. Gestational diabetes, diet controlled. 3. Group B beta strep positive. PROCEDURE: Spontaneous vaginal delivery and second-degree midline laceration repair. PRIMARY SURGEON: Nazanin Rosario M.D. ANESTHESIA: Epidural. ESTIMATED BLOOD LOSS: 300 mL. COMPLICATIONS: None. FINDINGS: Viable male. scores 8 at 1 minute and 9 at 5 minutes. Weight is pending. Spontaneous delivery, intact placenta, 3-vessel cord. DISPOSITION: nursery, mom in LDRP. PROCEDURE DETAILS: Agueda is a 23-year-old, G1, P0, at 39-2/7 weeks' gestational age, who was admitted on the evening of 09/18/2018 for scheduled induction of labor due to gestational diabetes. The patient was admitted. Routine labs were drawn. IV was initiated and initiated on her clindamycin for group B strep prophylaxis. The patient underwent Cytotec ripening for the evening and had a nice response. The following morning, she was found to be 3 cm, 80% effaced, -1 station. She had received clindamycin and underwent amniotomy shortly before 9:30 a.m. Clear fluid was returned. At that time, the patient was found to be 3 to 4 cm, 90% effaced, -1 station, was comfortable with an epidural. The patient continued to progress throughout the speech therapist early intervention hours and into the afternoon. Shortly afternoon, she was found to be 4 cm. Shortly after 4:00 p.m., she was found to be 9 cm, 100% effaced, 0 station. By 6 p.m., she was found to be complete, 100% effaced, +2 station, began pushing efforts, pushed for approximately 20 minutes, she was +3 station, I was called for delivery. Upon my arrival, the patient was placed in modified dorsal lithotomy position, was prepped and draped in the usual aseptic manner. Continued with pushing efforts. I was able to deliver 's head atraumatically spontaneously, followed by anterior shoulder, posterior shoulder, and remainder of the body without difficulty. Loose nuchal cord x1 was reduced manually. The 's oropharynx and nares were bulb suctioned. was handed off to his mother with attending nursing staff side. After a delay, cord was clamped x2 and cut. Cord arterial, cord venous, cord blood sample was obtained. Light pressure was applied while the placenta was delivered spontaneously intact. Vigorous fundal uterine massage was then applied while 30 units of Pitocin delivered in 500 mL of IV fluid. Upon inspection of cervix, vaginal sidewall, and perineum, there was found to be a second-degree midline laceration that was repaired using 3-0 Vicryl in the usual fashion. There was a first-degree right periurethral laceration, repaired using 3-0 Vicryl in a similar fashion. Hemostasis appeared evident. Sponge, instrument, and needle counts were correct x2. The patient tolerated the procedure well. Uterus remained firm. Hemostasis was evident. The patient remained in LDRP, to nursery. MILIND / PAUL /[id number]
[2018-09-19] MEDS: Witch Hazel Medicated Pads 40/Jar TOP PRN (21:28)
[2018-09-19] MEDS: Ibuprofen 800 MG Tab PO PRN (23:17)
[2018-09-20] MEDS: Acetaminophen 500 MG Tab PO PRN ×2 (00:36→13:30)
[2018-09-20] MEDS: Ibuprofen 800 MG Tab PO PRN ×3 (05:42→21:13)
--- NOTE | 2018-09-20 06:46 | PCM48HPAN ---
Post Anesthesia Note - EVALUATION WITHIN 48HRS OF ANESTHETIC Vital Signs in Normal Range: Yes Patient Participated in Evaluation: Yes Respiratory Function Stable: Yes Airway Patent: Yes Cardiovascular Function Stable: Yes Hydration Status Stable: Yes Pain Control Satisfactory: Yes Nausea and Vomiting Control Satisfactory: Yes Mental Status Recovered: Yes Pulse Rate: 78 SaO2: 96 Resp Rate: 16 Blood Pressure: 121/63
--- NOTE | 2018-09-20 08:50 | PCM.PNPP ---
- General Info Date of Service: 09/20/18 Functional Status: Reports: Pain Controlled, Tolerating Diet, Ambulating, Urinating - Review of Systems General: Reports: Fatigue. Denies: Fever, Weakness Pulmonary: Denies: Shortness of Breath Cardiovascular: Denies: Chest Pain, Palpitations, Lightheadedness Gastrointestinal: Reports: Flatus. Denies: Abdominal Pain, Nausea, Vomiting Genitourinary: Denies: Flank Pain Musculoskeletal: Reports: No Symptoms Skin: Reports: No Symptoms Neurological: Reports: No Symptoms Psychiatric: Reports: No Symptoms - General Info Date of Service: 09/20/18 - Patient Data Vital Signs - Most Recent: Last Vital Signs Temp 36.5 C 09/20/18 08:30 Pulse 90 09/20/18 08:30 Resp 17 09/20/18 08:30 BP 109/60 09/20/18 08:30 Pulse Ox 97 09/20/18 08:30 Weight - Most Recent: 81.193 kg Lab Results - Last 24 Hours: Laboratory Results - last 24 hr 09/19/18 09/19/18 09/19/18 Range/Units 12:08 15:48 18:40 Hgb (12.0-16.0) g/dL Hct (36.0-46.0) % Cord ABG pH 7.259 (7.18-7.38) Cord ABG Base Excess -6 (-10--2) Cord VBG pH 7.312 (7.25-7.45) Cord VBG Base Excess -7 (-10--2) POC Glucose 68 61 (60-110) mg/dL Fasting Glucose (74-106) mg/dL 09/20/18 09/20/18 Range/Units 06:05 06:05 Hgb 11.7 L (12.0-16.0) g/dL Hct 35.1 L (36.0-46.0) % Cord ABG pH (7.18-7.38) Cord ABG Base Excess (-10--2) Cord VBG pH (7.25-7.45) Cord VBG Base Excess (-10--2) POC Glucose (60-110) mg/dL Fasting Glucose 90 (74-106) mg/dL Med Orders - Current: Current Medications Acetaminophen (Tylenol Extra Strength) 500 mg PO Q4H PRN PRN Reason: Pain Acetaminophen (Tylenol Extra Strength) 1,000 mg PO Q4H PRN PRN Reason: Pain Last Admin: 09/20/18 00:36 Dose: 1,000 mg Al Hydroxide/Mg Hydroxide (Mag-Al Plus) 30 ml PO Q8H PRN PRN Reason: Heartburn Benzocaine/Menthol (Dermoplast Pain Relief 20%-0.5% [place]) 78 gm TOP ASDIRECTED PRN PRN Reason: Perineal Comfort Measure Last Admin: 09/19/18 21:28 Dose: 78 gm Bisacodyl (Dulcolax) 10 mg RECTAL ONETIME PRN PRN Reason: Constipation Carboprost Tromethamine (Hemabate Ds) 250 mcg IM ASDIRECTED PRN PRN Reason: Post Hemorrhage Docusate Sodium (Colace) 100 mg PO BID PRN PRN Reason: Constipation Emollient Ointment (Lansinoh Hpa) 0 gm TOP ASDIRECTED PRN PRN Reason: Sore Nipples Lactated Ringer's (Ringers, Lactated) 1,000 mls @ 150 mls/hr IV ASDIRECTED LEENA Oxytocin/Sodium Chloride (Oxytocin 30 Unit/500 Ml-Ns) 30 unit in 500 mls @ 999 mls/hr IV TITRATE LEENA Tranexamic Acid 1,000 mg/ (Sodium Chloride) 110 mls @ 660 mls/hr IV ONETIME PRN PRN Reason: Bleeding Oxytocin/Sodium Chloride (Oxytocin 30 Unit/500 Ml-Ns) 30 unit in 500 mls @ 2 mls/hr IV TITRATE LEENA; Protocol Last Titration: 09/19/18 17:32 Dose: 16 munits/min, 16 mls/hr Ibuprofen (Motrin) 400 mg PO Q4H PRN PRN Reason: Pain Ibuprofen (Motrin) 800 mg PO Q6H PRN PRN Reason: Pain Last Admin: 09/20/18 05:42 Dose: 800 mg Lidocaine HCl (Xylocaine 1%) 50 ml INJECT ONETIME PRN PRN Reason: Laceration repair Methylergonovine Maleate (Methergine) 0.2 mg IM ASDIRECTED PRN PRN Reason: Post Hemorrhage Ondansetron HCl (Zofran) 4 mg IV Q6H PRN PRN Reason: Nausea/Vomiting Oxycodone HCl (Oxycodone) 5 mg PO Q2H PRN PRN Reason: Pain Sodium Chloride (Saline Flush) 10 ml FLUSH ASDIRECTED PRN PRN Reason: Keep Vein Open Sodium Chloride (Saline Flush) 2.5 ml FLUSH ASDIRECTED PRN PRN Reason: Keep Vein Open Sodium Chloride (Normal Saline) 10 ml IV ASDIRECTED PRN PRN Reason: IV Use Sterile Water (Sterile Water For Irrigation) 1,000 ml IRR ASDIRECTED PRN PRN Reason: delivery Terbutaline Sulfate (Brethine) 0.25 mg SUBCUT ASDIRECTED PRN PRN Reason: Tacysystole Witch Sarah (Tucks) 1 pad TOP ASDIRECTED PRN PRN Reason: comfort care Last Admin: 09/19/18 21:28 Dose: 1 pad Discontinued Medications Butorphanol Tartrate (Stadol) 1 mg IVPUSH Q1H PRN PRN Reason: Pain Clindamycin Phosphate 900 mg/ (Premix) 50 mls @ 100 mls/hr IV Q8H LEENA Last Admin: 09/19/18 18:06 Dose: 100 mls/hr Fentanyl/Bupivacaine HCl (Dtwnhhvo-Kaaxv-Ff 2 Mcg/Ml-0.125%) Confirm Administered Dose 100 mls @ as directed .ROUTE .STK-MED ONE Stop: 09/19/18 01:48 Last Admin: 09/20/18 01:14 Dose: Not Given Fentanyl/Bupivacaine HCl (Pkpbwjgo-Neeot-Md 2 Mcg/Ml-0.125%) Confirm Administered Dose 100 mls @ as directed .ROUTE .STK-MED ONE Stop: 09/19/18 10:14 Last Admin: 09/20/18 01:14 Dose: Not Given Fentanyl/Bupivacaine HCl (Lirpcvcf-Smhpp-Mc 2 Mcg/Ml-0.125%) Confirm Administered Dose 100 mls @ as directed .ROUTE .STK-MED ONE Stop: 09/19/18 16:14 Last Admin: 09/20/18 01:15 Dose: Not Given Measles/Mumps/Rubella Vaccine Live (M-M-R Ii Vaccine) 0.5 ml SUBCUT .ONCE ONE Stop: 09/19/18 19:22 Misoprostol (Cytotec) 200 mcg PO ONETIME PRN PRN Reason: Post Hemorrhage Misoprostol (Cytotec) 25 mcg VAG Q4H PRN PRN Reason: Cervical Ripening Last Admin: 09/18/18 18:24 Dose: 25 mcg - Interaction Support Person: Significant Other - Recovery Exam Fundal Tone: Firm Fundal Level: At Umbilicus Fundal Placement: Midline Lochia Amount: Scant Lochia Color: Rubra/Red Perineum Description: Intact, Minimal Bruising/Swelling, Edematous Episiotomy/Laceration: Approximated Bladder Status: Voiding Urinary Elimination: Voided - Exam General: Alert, Oriented Lungs: Normal Respiratory Effort Cardiovascular: Regular Rate, Regular Rhythm GI/Abdominal Exam: Normal Bowel Sounds, Soft Extremities: Pedal Edema (trace). No: Chrissy's Sign Skin: Warm, Dry, Intact Neurological: No New Focal Deficit Psy/Mental Status: Alert, Normal Affect, Normal Mood - Problem List & Annotations (1) Vaginal delivery SNOMED Code(s): 967132807 Code(s): O80 - ENCOUNTER FOR FULL-TERM UNCOMPLICATED DELIVERY Status: Acute Current Visit: Yes - Problem List Review Problem List Initiated/Reviewed/Updated: Yes - My Orders Last 24 Hours: My Active Orders 09/19/18 19:07 Patient Status [ADT] Routine May Shower [RC] ASDIRECTED Up ad Sarai [RC] ASDIRECTED Vital Signs [RC] PER UNIT ROUTINE Acetaminophen [Tylenol Extra Strength] 1,000 mg PO Q4H PRN Acetaminophen [Tylenol Extra Strength] 500 mg PO Q4H PRN Alum Hydrox/Mag Hydrox/Simeth [Mag-Al Plus] 30 ml PO Q8H PRN Benzocaine/Menthol [Dermoplast Pain Relief 20%-0.5% [place]] 78 gm TOP ASDIRECTED PRN Bisacodyl [Dulcolax] 10 mg RECTAL ONETIME PRN Docusate Sodium [Colace] 100 mg PO BID PRN Ibuprofen [Motrin] 400 mg PO Q4H PRN Ibuprofen [Motrin] 800 mg PO Q6H PRN Lanolin [Lansinoh HPA] See Dose Instructions TOP ASDIRECTED PRN Witch Sarah [Tucks] 1 pad TOP ASDIRECTED PRN oxyCODONE 5 mg PO Q2H PRN Assess Lochia [WOMSER] Per Unit Routine Assess Uterine Involution [WOMSER] Per Unit Routine Ice Therapy [OM.PC] Per Unit Routine Perineal Care [OM.PC] Per Unit Routine Peripheral IV Discontinue [OM.PC] Routine Sitz Bath [OM.PC] Per Unit Routine 09/19/18 19:22 Vaccines to be Administered [RC] PER UNIT ROUTINE 09/19/18 Dinner Regular Diet [DIET] - Assessment Assessment:: PPD 1 status post Gestational diabetes - Plan Plan:: Patient is doing well overall and is going well. Glucoses have been normal. She is advised to check randomly at home over next 6 weeks and call if >130. Otherwise, plan 75 gm GTT at PP visit. Patient would like to go home later today. Discharge instructions reviewed. Follow up at [facility] 6 weeks. Infection and bleeding warnings reviewed. Discharge to home today.
[2018-09-20] MEDS: oxyCODONE 5 MG Tab PO PRN ×2 (16:26→23:23)
[2018-09-21] MEDS: Acetaminophen 500 MG Tab PO PRN ×2 (02:15→12:18)
[2018-09-21] MEDS: oxyCODONE 5 MG Tab PO PRN (08:07)
[2018-09-21 08:50] VITALS: BP 109/59
--- NOTE | 2018-09-21 09:07 | PCM.PNPP ---
- General Info Date of Service: 09/21/18 Functional Status: Reports: Pain Controlled, Tolerating Diet, Ambulating, Urinating - Review of Systems General: Reports: No Symptoms HEENT: Reports: No Symptoms Pulmonary: Reports: No Symptoms Cardiovascular: Reports: No Symptoms Gastrointestinal: Reports: No Symptoms Genitourinary: Reports: No Symptoms Musculoskeletal: Reports: No Symptoms Skin: Reports: No Symptoms Neurological: Reports: No Symptoms Psychiatric: Reports: No Symptoms - Patient Data Vital Signs - Most Recent: Last Vital Signs Temp 36.6 C 09/21/18 08:00 Pulse 78 09/21/18 08:00 Resp 17 09/21/18 08:00 BP 109/59 L 09/21/18 08:00 Pulse Ox 97 09/21/18 08:00 Weight - Most Recent: 81.193 kg Med Orders - Current: Current Medications Acetaminophen (Tylenol Extra Strength) 500 mg PO Q4H PRN PRN Reason: Pain Acetaminophen (Tylenol Extra Strength) 1,000 mg PO Q4H PRN PRN Reason: Pain Last Admin: 09/21/18 02:15 Dose: 1,000 mg Al Hydroxide/Mg Hydroxide (Mag-Al Plus) 30 ml PO Q8H PRN PRN Reason: Heartburn Benzocaine/Menthol (Dermoplast Pain Relief 20%-0.5% [place]) 78 gm TOP ASDIRECTED PRN PRN Reason: Perineal Comfort Measure Last Admin: 09/19/18 21:28 Dose: 78 gm Bisacodyl (Dulcolax) 10 mg RECTAL ONETIME PRN PRN Reason: Constipation Carboprost Tromethamine (Hemabate Ds) 250 mcg IM ASDIRECTED PRN PRN Reason: Post Hemorrhage Docusate Sodium (Colace) 100 mg PO BID PRN PRN Reason: Constipation Last Admin: 09/21/18 08:07 Dose: 100 mg Emollient Ointment (Lansinoh Hpa) 0 gm TOP ASDIRECTED PRN PRN Reason: Sore Nipples Lactated Ringer's (Ringers, Lactated) 1,000 mls @ 150 mls/hr IV ASDIRECTED LEENA Oxytocin/Sodium Chloride (Oxytocin 30 Unit/500 Ml-Ns) 30 unit in 500 mls @ 999 mls/hr IV TITRATE LEENA Tranexamic Acid 1,000 mg/ (Sodium Chloride) 110 mls @ 660 mls/hr IV ONETIME PRN PRN Reason: Bleeding Oxytocin/Sodium Chloride (Oxytocin 30 Unit/500 Ml-Ns) 30 unit in 500 mls @ 2 mls/hr IV TITRATE LEENA; Protocol Last Titration: 09/19/18 17:32 Dose: 16 munits/min, 16 mls/hr Ibuprofen (Motrin) 400 mg PO Q4H PRN PRN Reason: Pain Ibuprofen (Motrin) 800 mg PO Q6H PRN PRN Reason: Pain Last Admin: 09/20/18 21:13 Dose: 800 mg Lidocaine HCl (Xylocaine 1%) 50 ml INJECT ONETIME PRN PRN Reason: Laceration repair Methylergonovine Maleate (Methergine) 0.2 mg IM ASDIRECTED PRN PRN Reason: Post Hemorrhage Ondansetron HCl (Zofran) 4 mg IV Q6H PRN PRN Reason: Nausea/Vomiting Oxycodone HCl (Oxycodone) 5 mg PO Q2H PRN PRN Reason: Pain Last Admin: 09/21/18 08:07 Dose: 5 mg Sodium Chloride (Saline Flush) 10 ml FLUSH ASDIRECTED PRN PRN Reason: Keep Vein Open Sodium Chloride (Saline Flush) 2.5 ml FLUSH ASDIRECTED PRN PRN Reason: Keep Vein Open Sodium Chloride (Normal Saline) 10 ml IV ASDIRECTED PRN PRN Reason: IV Use Sterile Water (Sterile Water For Irrigation) 1,000 ml IRR ASDIRECTED PRN PRN Reason: delivery Terbutaline Sulfate (Brethine) 0.25 mg SUBCUT ASDIRECTED PRN PRN Reason: Tacysystole Witch Sarah (Tucks) 1 pad TOP ASDIRECTED PRN PRN Reason: comfort care Last Admin: 09/19/18 21:28 Dose: 1 pad Discontinued Medications Butorphanol Tartrate (Stadol) 1 mg IVPUSH Q1H PRN PRN Reason: Pain Clindamycin Phosphate 900 mg/ (Premix) 50 mls @ 100 mls/hr IV Q8H LEENA Last Admin: 09/19/18 18:06 Dose: 100 mls/hr Fentanyl/Bupivacaine HCl (Xxmnxtos-Bdrrf-Le 2 Mcg/Ml-0.125%) Confirm Administered Dose 100 mls @ as directed .ROUTE .STK-MED ONE Stop: 09/19/18 01:48 Last Admin: 09/20/18 01:14 Dose: Not Given Fentanyl/Bupivacaine HCl (Rjyvgzom-Kwcvg-Cz 2 Mcg/Ml-0.125%) Confirm Administered Dose 100 mls @ as directed .ROUTE .STK-MED ONE Stop: 09/19/18 10:14 Last Admin: 09/20/18 01:14 Dose: Not Given Fentanyl/Bupivacaine HCl (Hzyztgpd-Hyyqw-Ks 2 Mcg/Ml-0.125%) Confirm Administered Dose 100 mls @ as directed .ROUTE .STK-MED ONE Stop: 09/19/18 16:14 Last Admin: 09/20/18 01:15 Dose: Not Given Measles/Mumps/Rubella Vaccine Live (M-M-R Ii Vaccine) 0.5 ml SUBCUT .ONCE ONE Stop: 09/19/18 19:22 Misoprostol (Cytotec) 200 mcg PO ONETIME PRN PRN Reason: Post Hemorrhage Misoprostol (Cytotec) 25 mcg VAG Q4H PRN PRN Reason: Cervical Ripening Last Admin: 09/18/18 18:24 Dose: 25 mcg - Interaction Disposition, : in Room with Family Interaction: Holding Feeding: Attempted ; Nursed Fair/Poor Support Person: Significant Other - Recovery Exam Fundal Tone: Firm Fundal Level: 2 Fingerbreadths Below Umbilicus Fundal Placement: Midline Lochia Amount: Scant Lochia Color: Rubra/Red Perineum Description: Intact, Minimal Bruising/Swelling, Edematous Episiotomy/Laceration: Approximated Bladder Status: Voiding Urinary Elimination: Voided - Exam General: Alert, Oriented HEENT: Pupils Equal Neck: Supple Lungs: Normal Respiratory Effort GI/Abdominal Exam: Soft, Non-Tender, No Mass Extremities: Normal Inspection, Normal Range of Motion, Non-Tender, No Pedal Edema, Normal Capillary Refill Skin: Warm, Dry, Intact Neurological: No New Focal Deficit Psy/Mental Status: Alert, Normal Affect, Normal Mood - Problem List Review Problem List Initiated/Reviewed/Updated: Yes - Assessment Assessment:: PPD 2 after , stable is going a little better, baby fussy, would like to go home sometime today. - Plan Plan:: Discharge to home today. Discharge instructions reviewed.
[2018-09-21] MEDS: Witch Hazel Medicated Pads 40/Jar TOP PRN (13:54)
== END 2018-09-21 14:40 | disposition home or self-care (01) | DRG 560 ==
LOC: MW.OB 16:55 → OBSVTOIN 09-19 19:07 → MW.OB 09-19 22:26
PROVIDERS: ADMIT Obstetrics & Gynecology; ATTEND Obstetrics & Gynecology
PROC: 10907ZC Drainage of Amniotic Fluid, Therapeutic from Products of Conception, Via Natural or Artificial Opening (ICD-10-PCS; principal; 2018-09-19)
PROC: 0UQMXZZ Repair Vulva, External Approach (ICD-10-PCS; principal; 2018-09-19)
PROC: 6A550ZT Pheresis of Cord Blood Stem Cells, Single (ICD-10-PCS; principal; 2018-09-19)
PROC: 0KQM0ZZ Repair Perineum Muscle, Open Approach (ICD-10-PCS; principal; 2018-09-19)
PROC: 3E0P7VZ Introduction of Hormone into Female Reproductive, Via Natural or Artificial Opening (ICD-10-PCS; principal; 2018-09-19)
PROC: 10E0XZZ Delivery of Products of Conception, External Approach (ICD-10-PCS; principal; 2018-09-19)
PROC: 3E033VJ Introduction of Other Hormone into Peripheral Vein, Percutaneous Approach (ICD-10-PCS; principal; 2018-09-19)
PROC: 3E0R3BZ Introduction of Anesthetic Agent into Spinal Canal, Percutaneous Approach (ICD-10-PCS; 2018-09-19)
PROC: 00HU33Z Insertion of Infusion Device into Spinal Canal, Percutaneous Approach (ICD-10-PCS; 2018-09-19)
DX: O24.420 Gestational diabetes mellitus in childbirth, diet controlled (principal); Z37.0 Single live birth; Z3A.39 39 weeks gestation of pregnancy; O99.824 Streptococcus B carrier state complicating childbirth; O99.344 Other mental disorders complicating childbirth; F41.9 Anxiety disorder, unspecified; F32.9 Major depressive disorder, single episode, unspecified; O99.62 Diseases of the digestive system complicating childbirth; K21.9 Gastro-esophageal reflux disease without esophagitis; O99.214 Obesity complicating childbirth; E66.9 Obesity, unspecified; O99.354 Diseases of the nervous system complicating childbirth; G43.909 Migraine, unspecified, not intractable, without status migrainosus; O70.1 Second degree perineal laceration during delivery; O69.81X0 Labor and delivery complicated by cord around neck, without compression, not applicable or unspecified; Z88.0 Allergy status to penicillin; Z87.891 Personal history of nicotine dependence; Z87.440 Personal history of urinary (tract) infections
CPT/HCPCS: 36415; 51702; 82803; 82947; 82962; 85014; 85018; 85027; 86850; 86900; 86901; 90707; A4217; A9270-GY; J2590; J3490

== ENCOUNTER 2019-03-28 11:41 | Emergency (ER) | payer BC ==
--- NOTE | 2019-03-28 12:06 | EDM.PDOC ---
ED HPI GENERAL MEDICAL PROBLEM - General Chief Complaint: Genitourinary Problem Stated Complaint: KIDNEY INFECTION Time Seen by Provider: 03/28/19 12:05 - History of Present Illness INITIAL COMMENTS - FREE TEXT/NARRATIVE: HISTORY AND PHYSICAL: History of present illness: Patient is a 24-year-old female presents to the ED with complaint of possible UTI. She states she is having painful urination and frequent urination as well as low back pain. She denies fevers, chills, nausea, vomiting, diarrhea. Review of systems: As per history of present illness and below otherwise all systems reviewed and negative. Past medical history: As per history of present illness and as reviewed below otherwise noncontributory. Surgical history: As per history of present illness and as reviewed below otherwise noncontributory. Social history: No reported history of drug or alcohol abuse. Family history: As per history of present illness and as reviewed below otherwise noncontributory. Physical exam: General: Patient sitting comfortably in no acute distress and nontoxic appearing HEENT: Atraumatic, normocephalic, pupils reactive, negative for conjunctival pallor or scleral icterus, mucous membranes moist, throat clear, neck supple, nontender, trachea midline. No meningeal signs. Lungs: Clear to auscultation, breath sounds equal bilaterally, chest nontender. Heart: S1S2, regular, negative for clicks, rubs, or overt murmur. Abdomen: Soft, nondistended, nontender. Negative for masses or hepatosplenomegaly. Negative for costovertebral tenderness. No rigidity, rebound , guarding. Pelvis: Stable nontender. Genitourinary: Deferred. Rectal: Deferred. Extremities: Atraumatic, negative for cords or calf pain. Neurovascular unremarkable. Neuro: Awake, alert, oriented. Cranial nerves II through XII unremarkable. Cerebellum unremarkable. Motor and sensory unremarkable throughout. Exam nonfocal. Notes: Diagnostics: UA Therapeutics: none Prescriptions: Macrobid Impression: UTI Plan: Drink plenty of fluids and take antibiotic as directed. Follow up with primary care provider Return to ED as needed as discussed Definitive disposition and diagnosis as appropriate pending reevaluation and review of above. bilateral flank Pain Score (Numeric/FACES): 8 - Related Data Allergies Allergy/AdvReac Type Severity Reaction Status Date / Time Penicillins Allergy Cannot Verified 12/31/19 11:53 Remember Home Meds: Home Meds No122/Iron/Folic Acid [ Multi Tablet] 1 tab PO DAILY 08/12/18 [ History] Nitrofurantoin Monohyd/M-Cryst [Macrobid 100 mg Capsule] 100 mg PO BID 7 Days # 14 capsule 03/28/19 [Rx] Sertraline [Zoloft] 100 mg PO DAILY 03/28/19 [History] Past Medical History - Past Health History Medical/Surgical History: Denies Medical/Surgical History HEENT History: Reports: Other (See Below) Other HEENT History: wears glasses Cardiovascular History: Reports: Other (See Below) Other Cardiovascular History: states she has Mitral Valve prolapse, no murmur heard Respiratory History: Reports: None Gastrointestinal History: Reports: GERD Other Gastrointestinal History: rectal bleed Genitourinary History: Reports: None Other Genitourinary History: states frequent UTI's in last 2 years [employer] History: Reports: Musculoskeletal History: Reports: None Neurological History: Reports: Migraines Other Neuro History: does not take any medications for migranes, "sleeps" to relieve pain Psychiatric History: Reports: Anxiety, Depression Endocrine/Metabolic History: Reports: Diabetes, Gestational, Obesity/BMI 30+ Hematologic History: Reports: None Immunologic History: Reports: None Oncologic (Cancer) History: Reports: None Dermatologic History: Reports: None - Infectious Disease History Infectious Disease History: Reports: Chicken Pox - Past Surgical History Head Surgeries/Procedures: Reports: None HEENT Surgical History: Reports: None Cardiovascular Surgical History: Reports: None Respiratory Surgical History: Reports: None GI Surgical History: Reports: Appendectomy, Colonoscopy Female Surgical History: Reports: None Endocrine Surgical History: Reports: None Neurological Surgical History: Reports: None Musculoskeletal Surgical History: Reports: None Oncologic Surgical History: Reports: None Dermatological Surgical History: Reports: None Social & Family History - Family History Family Medical History: Noncontributory HEENT: Reports: None Cardiac: Reports: None Respiratory: Reports: None GI: Reports: None : Reports: None OBGYN: Reports: None Musculoskeletal: Reports: None Neurological: Reports: None Psychiatric: Reports: None Endocrine/Metabolic: Reports: Diabetes, type II Hematologic: Reports: None Immunologic: Reports: None Oncologic: Reports: None - Tobacco Use Smoking Status *Q: Current Every Day Smoker Years of Tobacco use: 1 Packs/Tins Daily: 1 - Caffeine Use Caffeine Use: Reports: Coffee, Energy Drinks, Soda, Tea - Recreational Drug Use Recreational Drug Use: Yes Recreational Drug Type: Reports: Marijuana/Hashish Recreational Drug Use Frequency: Rarely ED ROS GENERAL - Review of Systems Review Of Systems: Comprehensive ROS is negative, except as noted in HPI. ED EXAM, RENAL/ - Physical Exam Exam: See Below (see dictation) Course - Vital Signs Last Recorded V/S: Last Vital Signs Temp 96.4 F 03/28/19 11:54 Pulse 84 03/28/19 12:35 Resp 18 03/28/19 12:35 BP 112/72 03/28/19 12:35 Pulse Ox 97 03/28/19 12:35 - Orders/Labs/Meds Labs: Laboratory Tests 03/28/19 03/28/19 Range/Units 11:57 11:57 Urine Color YELLOW Urine Appearance SLT CLOUDY Urine pH 6.0 (5.0-8.0) Ur Specific [place] 1.025 (1.001-1.035) Urine Protein >=300 H (NEGATIVE) mg/dL Urine Glucose (UA) NEGATIVE (NEGATIVE) mg/dL Urine Ketones NEGATIVE (NEGATIVE) mg/dL Urine Occult Blood LARGE H (NEGATIVE) Urine Nitrite POSITIVE H (NEGATIVE) Urine Bilirubin NEGATIVE (NEGATIVE) Urine Urobilinogen 0.2 (<2.0) EU/dL Ur Leukocyte Esterase SMALL H (NEGATIVE) Urine RBC 20-30 (0-2/HPF) Urine WBC 20-30 (0-5/HPF) Ur Epithelial Cells RARE (NONE-FEW) Urine Bacteria 1+ H (NEGATIVE) Urine Mucus LIGHT (NONE-MOD) Urine HCG, Qual NEGATIVE (NEGATIVE) Departure - Departure Time of Disposition: 11:24 Disposition: Home, Self-Care 01 Condition: Good Clinical Impression: UTI (urinary tract infection) Qualifiers: Urinary tract infection type: site unspecified Hematuria presence: without hematuria Qualified Code(s): N39.0 - Urinary tract infection, site not specified - Discharge Information Prescriptions: Nitrofurantoin Monohyd/M-Cryst [Macrobid 100 mg Capsule] 100 mg PO BID 7 Days # 14 capsule Instructions: Urinary Tract Infection, Adult, [id number] Referrals: Nazanin Rosario MD [Primary Care Provider] - Forms: ED Department Discharge Additional Instructions: The following information is given to patients seen in the emergency department who are being discharged to home. This information is to outline your options for follow-up care. We provide all patients seen in our emergency department with a follow-up referral. The need for follow-up, as well as the timing and circumstances, are variable depending upon the specifics of your emergency department visit. If you don't have a primary care physician on staff, we will provide you with a referral. We always advise you to contact your personal physician following an emergency department visit to inform them of the circumstance of the visit and for follow-up with them and/or the need for any referrals to a consulting specialist. The emergency department will also refer you to a specialist when appropriate. This referral assures that you have the opportunity for follow-up care with a specialist. All of these measure are taken in an effort to provide you with optimal care, which includes your follow-up. Under all circumstances we always encourage you to contact your private physician who remains a resource for coordinating your care. When calling for follow-up care, please make the office aware that this follow-up is from your recent emergency room visit. If for any reason you are refused follow-up, please contact the [facility] Emergency Department at and asked to speak to the emergency department charge nurse. [facility] [address] [place] [id number] [place] [address] Drink plenty of fluids and take antibiotic as directed. Follow up with primary care provider Return to ED as needed as discussed Sepsis Event Note - Evaluation Sepsis Screening Result: No Definite Risk - Focused Exam Date Exam was Performed: 04/11/19 Time Exam was Performed: 11:22
[2019-03-28 12:35] VITALS: BP 112/72; PULSE 84
== END 2019-03-28 12:36 | disposition home or self-care (01) ==
LOC: MW.ED 11:41
DX: N39.0 Urinary tract infection, site not specified (principal); F41.9 Anxiety disorder, unspecified; F32.9 Major depressive disorder, single episode, unspecified; E66.9 Obesity, unspecified; Z68.27 Body mass index [BMI] 27.0-27.9, adult; Z90.49 Acquired absence of other specified parts of digestive tract; F17.210 Nicotine dependence, cigarettes, uncomplicated; Z88.0 Allergy status to penicillin; Z79.899 Other long term (current) drug therapy
CPT/HCPCS: 81001; 81025; 87086; 87088; 87186; 99282; 99284

== ENCOUNTER 2024-10-27 14:55 | Inpatient (IN) | payer BC ==
[2024-10-27] MEDS ORDERED: Sodium Chloride 0.9% 2.5 ML Syringe FLUSH PRN ×2 (15:44→18:22)
[2024-10-27] MEDS ORDERED: Sodium Chloride 0.9% 10 ML Syringe FLUSH PRN ×2 (15:44→18:22)
[2024-10-27] MEDS ORDERED: Calcium Gluconate 10% 1 GM/10 ML SDV IV PRN (15:48)
[2024-10-27] MEDS ORDERED: Magnesium Sulfate 4 GM/100 mL 4 GM in Premix Bag 1 BAG IV ONE (15:48)
[2024-10-27] MEDS ORDERED: Labetalol 100 MG/20 ML MDV IVPUSH PRN (15:48)
[2024-10-27] MEDS ORDERED: Magnesium Sulfate 20 GM/500mL 20 GM/500 ML BAG IV SCH (16:00)
[2024-10-27 16:03] LABS: GLUCOSE,URINE 100 mg/dL (NEGATIVE); OCCULT BLOOD,URINE NEGATIVE (NEGATIVE)
[2024-10-27 16:07] LABS: APPEARANCE,URINE HAZY
[2024-10-27] MEDS: Lactated Ringers 1,000 ML IV SCH ×2 (16:15→20:32)
[2024-10-27 16:57] LABS: CREATININE,URINE RAND 8.8 mg/dL; PROTEIN,URINE RANDOM <6.0 mg/dL (<11.9)
[2024-10-27 16:59] LABS: BASOPHILS ABSOLUTE AUTO 0.03 K/uL (0.00-0.20); BASOPHILS PERCENT AUTO 0.3 % (0.0-1.0); EOSINOPHILS ABSOLUTE AUTO 0.05 K/uL (0.00-0.45); EOSINOPHILS PERCENT AUTO 0.5 % (0.0-6.0); IMMATURE GRAN ABSOLUTE AUTO 0.07 K/uL (0.00-0.05); IMMATURE GRAN PERCENT AUTO 0.8 % (0.0-0.4); LYMPHOCYTES ABSOLUTE AUTO 1.71 K/uL (1.00-4.80); LYMPHOCYTES PERCENT AUTO 18.6 % (24.0-44.0); MEAN PLATELET VOLUME 8.2 fL (9.4-12.3); MONOCYTES ABSOLUTE AUTO 1.21 K/uL (0.00-0.80); MONOCYTES PERCENT AUTO 13.1 % (0.0-8.0); NEUTROPHILS ABSOLUTE AUTO 6.14 K/uL (1.80-7.70); NEUTROPHILS PERCENT AUTO 66.7 % (41.0-71.0); NRBC ABSOLUTE 0.00 K/uL (0.00-0.02); NRBC PERCENT 0.0 /100WBC (0.0-0.2); PLATELET COUNT,PLT 253 K/uL (150-400); RED BLOOD CELL COUNT 3.40 M/uL (4.10-5.30); WHITE BLOOD CELL COUNT,WBC 9.21 K/uL (3.9-11.3)
[2024-10-27 17:25] LABS: A/G RATIO 0.7 (0.9-1.6); ALANINE AMINOTRANSFERASE,ALT 33 IU/L (14-63); ASPARTATE AMNIOTRANSFERASE,AST 28 IU/L (15-37); BILIRUBIN TOTAL 0.2 mg/dL (0.2-1.0); BLOOD UREA NITROGEN,BUN 5 mg/dL (7.0-18.0); CARBON DIOXIDE,CO2 21.0 mmol/L (21.0-32.0); CHLORIDE,CL 105 mmol/L (98-107); CREATININE 0.6 mg/dL (0.6-1.0); GLUCOSE RANDOM 92 mg/dL (74-106); POTASSIUM,K 3.7 mmol/L (3.5-5.1); PROTEIN TOTAL,TP 6.5 g/dL (6.4-8.2); SODIUM,NA 140 mmol/L (136-145)
[2024-10-27 17:37] LABS: ESTIMATED GFR 125 mL/min (>60)
[2024-10-27 17:43] LABS: INR < 0.93 (0.86-1.11)
[2024-10-27 18:07] LABS: CANDIDA DNA PROBE NEGATIVE (NEGATIVE); GARDNERELLA DNA PROBE NEGATIVE (NEGATIVE); TRICHOMONAS DNA PROBE NEGATIVE (NEGATIVE)
[2024-10-27] MEDS ORDERED: Carboprost Tromethamine 250 MCG/1 mL Vial IM PRN (18:22)
[2024-10-27] MEDS ORDERED: Water For Irrigation,Sterile 1,000 ML Container IRR PRN (18:22)
[2024-10-27] MEDS ORDERED: Terbutaline 1 MG/ML SDV SUBCUT PRN (19:31)
[2024-10-27] MEDS: ceFAZolin 2 GM in Water For Injection, Sterile 20 ML IVPUSH ONE (20:32)
[2024-10-27] MEDS: Misoprostol 25 MCG (1/4 of 100 MCG) Tab PO PRN (20:32)
[2024-10-27] MEDS: Misoprostol 25 MCG (1/4 of 100 MCG) Tab VAG PRN (20:32)
[2024-10-28] MEDS ORDERED: ePHEDrine 50 MG/ML SDV IVPUSH PRN (00:08)
[2024-10-28] MEDS ORDERED: dexmedeTOMIDine HCl 200 MCG/2 ML SDV EPIDUR SCH (00:15)
[2024-10-28] MEDS: ceFAZolin 1 GM in Water For Injection, Sterile 10 ML IVPUSH SCH ×3 (01:25→22:30)
[2024-10-28] MEDS: Butorphanol 1 MG/ML SDV IVPUSH PRN (01:51)
[2024-10-28] MEDS: Ropivacaine HCl/PF 400 MG in Premix Bag 1 BAG EPIDUR SCH (08:57)
[2024-10-28] MEDS ORDERED: ceFAZolin 1 GM in Water For Injection, Sterile 10 ML IVPUSH SCH ×2 (12:00→20:00)
[2024-10-28] MEDS: Oxytocin/0.9 % Sodium Chloride 30 UNIT/500 ML BAG IV SCH (16:55)
[2024-10-28] MEDS: Ondansetron 4 MG/2 ML SDV IVPUSH PRN (19:13)
[2024-10-29] MEDS: Oxytocin/0.9 % Sodium Chloride 30 UNIT/500 ML BAG IV SCH (01:15)
[2024-10-29] MEDS ORDERED: Aluminum Hydroxide/Magnesium Hydroxide/Simethicone Susp 30 ML Cup PO PRN (01:37)
[2024-10-29 01:57] LABS: PH,UMBILICAL ARTERIAL 7.3 (7.18-7.38); PH,UMBILICAL VENOUS 7.37 (7.25-7.45)
[2024-10-29] MEDS: Witch Hazel Medicated Pads 40/Jar TOP PRN (02:21)
[2024-10-29] MEDS: Lanolin 100% Cream 7 GM Tube TOP PRN (02:21)
[2024-10-29] MEDS: Benzocaine/Menthol 20%-0.5% Spray 78 GM Cannister TOP PRN (02:22)
[2024-10-29 06:01] LABS: BASOPHILS ABSOLUTE AUTO 0.04 K/uL (0.00-0.20); BASOPHILS PERCENT AUTO 0.3 % (0.0-1.0); EOSINOPHILS ABSOLUTE AUTO 0.06 K/uL (0.00-0.45); EOSINOPHILS PERCENT AUTO 0.4 % (0.0-6.0); IMMATURE GRAN ABSOLUTE AUTO 0.06 K/uL (0.00-0.05); IMMATURE GRAN PERCENT AUTO 0.4 % (0.0-0.4); LYMPHOCYTES ABSOLUTE AUTO 1.60 K/uL (1.00-4.80); LYMPHOCYTES PERCENT AUTO 11.4 % (24.0-44.0); MEAN PLATELET VOLUME 8.4 fL (9.4-12.3); MONOCYTES ABSOLUTE AUTO 1.34 K/uL (0.00-0.80); MONOCYTES PERCENT AUTO 9.6 % (0.0-8.0); NEUTROPHILS ABSOLUTE AUTO 10.92 K/uL (1.80-7.70); NEUTROPHILS PERCENT AUTO 77.9 % (41.0-71.0); NRBC ABSOLUTE 0.00 K/uL (0.00-0.02); NRBC PERCENT 0.0 /100WBC (0.0-0.2); PLATELET COUNT,PLT 240 K/uL (150-400); RED BLOOD CELL COUNT 3.17 M/uL (4.10-5.30); WHITE BLOOD CELL COUNT,WBC 14.02 K/uL (3.9-11.3)
[2024-10-30] MEDS: Measles, Mumps & Rubella Vaccine 0.5 ML SDV SUBCUT ONE (15:50)
[2024-10-30 21:08] VITALS: BP 127/79; PULSE 86
== END 2024-10-30 17:25 | disposition home or self-care (01) | DRG 560 ==
LOC: MW.OBCHECK 14:55 → MW.OB 14:55 → MW.OBCHECK 20:00 → OBSVTOIN 10-29 01:13 → MW.OB 10-29 03:58
PROVIDERS: ADMIT Obstetrics & Gynecology; ATTEND Obstetrics & Gynecology
PROC: 10E0XZZ Delivery of Products of Conception, External Approach (ICD-10-PCS; principal; 2024-10-29)
PROC: 10907ZC Drainage of Amniotic Fluid, Therapeutic from Products of Conception, Via Natural or Artificial Opening (ICD-10-PCS; 2024-10-29)
PROC: 3E033VJ Introduction of Other Hormone into Peripheral Vein, Percutaneous Approach (ICD-10-PCS; 2024-10-29)
PROC: 4A1HXCZ Monitoring of Products of Conception, Cardiac Rate, External Approach (ICD-10-PCS; 2024-10-29)
PROC: 3E0R3BZ Introduction of Anesthetic Agent into Spinal Canal, Percutaneous Approach (ICD-10-PCS; 2024-10-29)
PROC: 00HU33Z Insertion of Infusion Device into Spinal Canal, Percutaneous Approach (ICD-10-PCS; 2024-10-29)
PROC: 0HQ9XZZ Repair Perineum Skin, External Approach (ICD-10-PCS; 2024-10-29)
DX: O99.892 Other specified diseases and conditions complicating childbirth (principal); O99.824 Streptococcus B carrier state complicating childbirth; O24.429 Gestational diabetes mellitus in childbirth, unspecified control; Z3A.37 37 weeks gestation of pregnancy; Z37.0 Single live birth; O70.0 First degree perineal laceration during delivery; R03.0 Elevated blood-pressure reading, without diagnosis of hypertension
CPT/HCPCS: 36415; 51702; 59025; 59409; 76805; 76805-26; 80053; 81003; 82570; 82803; 84112; 84156; 84550; 85025; 85384; 85610; 86592; 86850; 86900; 86901; 87480; 87510; 87660; 90471; 90707; A9270-GY; J0595; J0690; J2405; J2590; J2795; J7120